=== PATIENT | male | born 1980 | race Hispanic/Latino ===

== ENCOUNTER 2025-05-30 11:13 | Emergency (ER) | payer BC ==
[~2025-05-30] VITALS: Ht 175.3 cm; Wt 93.0 kg
--- NOTE | 2025-05-30 11:21 | ERN ---
ED Note History of Present Illness Stated Complaint: STUNG BY STING RAY TO RLE Chief Complaint: Lower Extremity Pain/Injury Time Seen by MD: 11:16 Dictation: PATIENT IS A 44-YEAR-OLD MALE COMING IN FROM [place] WHERE HE WAS FISHING IN THE WATER AND WAS STUNG BY A STINGRAY TO THE RIGHT LATERAL CALF. ENTRANCE WOUND IS TO THE SUPERIOR RIGHT LATERAL CALF AREA. LAST TETANUS SHOT IS UNKNOWN NO HISTORY OF DIABETES. PATIENT IS CONCERNED ABOUT RETAINED FOREIGN BODY. Allergies: Coded Allergies: No Known Allergies (Unverified Allergy, Unknown, 05/30/25) Past Medical History Past Medical History: No Pertinent History Surgical History: None RN Note Reviewed/Agreed w/PFSH: Yes Review of System Dictation CONSTITUTIONAL: NEGATIVE EXCEPT FOR HPI HEAD/FACE: NEGATIVE EXCEPT FOR HPI EENT: NEGATIVE EXCEPT FOR HPI RESPIRATORY: NEGATIVE EXCEPT FOR HPI GASTROINTESTINAL/ABDOMINAL: NEGATIVE EXCEPT FOR HPI GENITOURINARY: NEGATIVE EXCEPT FOR HPI MUSCULOSKELETAL: NEGATIVE EXCEPT FOR HPI INTEGUMENTARY: NEGATIVE EXCEPT FOR HPI STINGRAY PUNCTURE TO RIGHT LATERAL CALF NEUROLOGICAL/PSYCH: NEGATIVE EXCEPT FOR HPI HEMATOLOGIC/LYMPHATIC: NEGATIVE EXCEPT FOR HPI ALL SYSTEMS NEGATIVE, EXCEPT NOTED ABOVE. 13 POINT REVIEW OF SYSTEMS ASSESSED AND ALL NEGATIVE EXCEPT FOR ABOVE. Initial Vital Sign VS Vital Signs Date Time Temp Pulse Resp B/P (MAP) Pulse Ox O2 Delivery O2 Flow Rate FiO2 05/30/25 11:15 97.7 79 20 129/89 99 0 05/30/25 11:29 Room Air* 21 Physical Exam Dictation VITAL SIGNS REVIEWED GENERAL APPEARANCE: ALERT, ORIENTED X 3, MILD ACUTE DISTRESS, WELL DEVELOPED, NOURISHED. HEAD AND FACE: NON-TRAUMATIC. EYES: PERRL, PINK CONJUNCTIVAS, EYELID NO TRAUMA, ANTERIOR CHAMBER WITH ARCUS SENILIS. EARS: PINNAS INTACT AND NO SIGNS OF TRAUMA OR ERYTHEMA EAR CANALS CLEAR AND NO DISCHARGE TM NO ERYTHEMA NOSE: NO DISCHARGE, NO BLEEDING. OROPHARYNX: MOUTH NORMAL, TONGUE PINK, PHARYNX CLEAR,NO ERYTHEMA, TONSILS NO EXUDATES, NO ABSCESSES NOTED, MUCOUS MEMBRANE MOIST NECK: SUPPLE, NON-TENDER, NO THYROMEGALY, NO MASSES, NO JVD, NO BRUITS BREAST:DEFERRED CHEST:NO TENDERNESS, NO CREPITUS, NO PARADOXICAL MOVEMENT, NO RETRACTIONS LUNGS:CLEAR, WELL-VENTILATED, SYMMETRIC, NO RALES, NO WHEEZING, NO RHONCHI, NO STRIDOR, GOOD BREATH SOUNDS BILATERALLY HEART: REGULAR RATE, REGULAR RHYTHM, NO MURMUR, NO GALLOPS VASCULAR: NO PERIPHERAL EDEMA, ABDOMEN: SOFT, POSITIVE BOWEL SOUNDS, NONDISTENDED, NO GUARDING, NONTENDER, NO REBOUND, NO MASSES NO HEPATOMEGALY, NO SPLENOMEGALY, NO BURRIS'S SIGN, NO HERNIAS. RECTAL: DEFERRED GENITAL: DEFERRED NEUROLOGICAL: NORMAL SPEECH, MOTOR FUNCTION INTACT, SENSORY FUNCTION INTACT MUSCULOSKELETAL: NECK NONTENDER, FULL RANGE OF MOTION, BACK NONTENDER, FULL RANGE OF MOTION, EXTREMITIES: NONTENDER, FULL RANGE OF MOTION SKIN: COLOR PINK, DRY, PUNCTURE WOUND TO RIGHT SUPERIOR LATERAL CALF AREA. DISTAL NEUROVASCULAR CMS INTACT LYMPHATIC: DEFERRED Results (Laboratory/Radiology) Laboratory/Radiology 1255/RIGHT TIB FIB DEMONSTRATES NO RADIOPAQUE FOREIGN BODY NOTED. Labs Reviewed?: Yes ED Course ED Course Orders Procedure Category Date Status Time Tibia/Fibula 2vws Rt RAD 05/30/25 Taken 11:19 Neomy PHA 05/30/25 Complete Sulf/Bacitra/Polymyxin 11:30 Ibuprofen 800 Mg Tab PHA 05/30/25 Complete (Motrin) 11:30 Clindamycin 150mg Cap PHA 05/30/25 Complete (Cleocin 150mg Cap 11:30 Current Medications Medications (Trade) Dose Ordered Sig/Wendy Route PRN Reason Start Time Stop Time Status Last Admin Dose Admin Clindamycin HCl (Cleocin 150mg Cap) 600 mg ONCE ONCE PO 05/30/25 11:30 05/30/25 11:31 DC 05/30/25 11:35 Ibuprofen (moTRIN) 800 mg ONCE ONCE PO 05/30/25 11:30 05/30/25 11:31 DC 05/30/25 11:35 Neomycin/ Polymyxin/ Bacitracin (Triple Antibiotic Ointment) 1 appl ONCE ONCE TP 05/30/25 11:30 05/30/25 11:31 DC 05/30/25 11:35 Vital Signs Date Time Temp Pulse Resp B/P (MAP) Pulse Ox O2 Delivery O2 Flow Rate FiO2 05/30/25 11:29 98.1 78 16 126/85 98 Room Air* 0 21 05/30/25 11:15 97.7 79 20 129/89 99 0 1255/PATIENT AWARE THAT HIS X-RAYS NEGATIVE FOR RADIOPAQUE FOREIGN BODY. HE CLINDAMYCIN WAS INITIATED WITH PAIN MANAGEMENT. PATIENT TOLD TO KEEP IT CLEAN AND DRY NO WAITING IN THE OCEAN HOT TUBS OR SWIMMING SEE HIS PRIMARY CARE DOCTOR ON SUNDAY WITHOUT FAIL FOR MANAGEMENT Medical Decision Making MDM MEDICAL DISCHARGE MAKING BASED ON UPDATING TETANUS SHOT AN X-RAY TO RULE OUT RETAINED JUAN MIGUEL FROM STINGRAY TO RIGHT LOWER EXTREMITY. NO FOREIGN BODY NOTED CLINDAMYCIN INITIATED WOUND CARE INSTRUCTIONS GIVEN DX & DISP Disposition: Discharge Departure Impression: Primary Impression: Puncture wound of right lower extremity Additional Impression: Poisoning by stingray Condition: Stable Scripts Ibuprofen (Ibuprofen 800 mg Tab) 800 Mg Tab 800 MG PO Q8H PRN for fever or pain, #30 TAB 0 Refills Prov: DEACON CA NP 05/30/25 Clindamycin HCl (Clindamycin HCl) 300 Mg Capsule 1 CAP PO QID for 10 Days, #40 CAP 0 Refills Prov: DEACON CA NP 05/30/25 Additional Instructions: FOLLOW-UP WITH PRIMARY CARE PROVIDER IN 1 TO 2 DAYS. TAKE MEDICATIONS DIRECTED HERE IN THE EMERGENCY ROOM. OKAY TO CONTINUE HOME MEDICATIONS UNLESS OTHERWISE DISCUSSED DURING YOUR VISIT IN THE EMERGENCY ROOM TODAY. RETURN TO YOUR NEAREST EMERGENCY ROOM IF SYMPTOMS WORSEN OR IF THERE IS NO IMPROVEMENT. CALL 911 IF YOU NEED IMMEDIATE ASSISTANCE. TAKE TYLENOL OR MOTRIN [id number] NEEDED AND IF NO CONTRAINDICATIONS ARE PRESENT. INCREASE ORAL HYDRATION. A WOUND CULTURE OR URINE CULTURE WAS ORDERED HERE IN THE EMERGENCY ROOM DEPARTMENT PLEASE FOLLOW-UP WITH PRIMARY CARE PROVIDER AND ADVISE THEM TO GET REPEAT PORTS FROM OUR FACILITY. IF YOU HAD ANY JUS WRAP/SPLINTS THAT WERE APPLIED HERE, PLEASE DO NOT REMOVE THEM UNTIL YOU SEE YOUR PRIMARY CARE OR SPECIALTY. KEEP PUNCTURE WOUNDS TO RIGHT LOWER EXTREMITY CLEAN AND DRY. NO SWIMMING IN POOL, NO OCEAN WAITING, NO HOT TUBS UNTIL CLEARED BY YOUR DOCTOR NEXT WEEK. TAKE ANTIBIOTICS DIRECTED UNTIL GONE. APPLY TRIPLE ANTIBIOTIC OINTMENT/[id number] 3 TIMES A DAY FOR FIVE DAYS WITH BAND-AID TO PUNCTURE WOUNDS. Referrals: SELF,REFERRAL (PCP) Time of Disposition: 12:56 I have reviewed the case, and I agree with, Diagnosis and Plan DEACON CA NP May 30, 2025 11:21
--- NOTE | 2025-05-30 11:26 | NUR ---
vis acuity 20/30 right 20/50 left Addendum: 05/30/25 at 1127 by [email or web address] disreguard visual acuity wrong pt
[2025-05-30] MEDS: NEOMY SULF/BACITRA/POLYMYXIN B 1 EACH PACKET TP ONE (11:35)
[2025-05-30] MEDS: CLINDAMYCIN 150 MG CAP PO ONE (11:35)
[2025-05-30] MEDS ORDERED: CLIN-141 PO (12:57)
[2025-05-30] MEDS ORDERED: IBUP-2077 PO (12:57)
[2025-05-30 13:03] VITALS: BP 124/80; PULSE 74; RESP 16; TEMP 98.1; O2SAT 98
--- NOTE | 2025-05-30 13:05 | NUR ---
dc pend med order for pain mgmt
[2025-05-30] MEDS: HYDROcodone/APAP 5/325 1 TAB TABLET PO ONE (13:13)
--- NOTE | 2025-05-30 13:55 | HMCIMG ---
EXAM: CR right Tibia and fibula, 2 View. CLINICAL HISTORY: STINGRAY STING TO LATERAL RIGHT CALF. RULE OUT FOREIGN BODY COMPARISON: None provided. FINDINGS: BONES: No acute fracture or aggressive appearing osseous lesion. JOINTS: No dislocation. The joint spaces are normal. SOFT TISSUES: The soft tissues are unremarkable. No radiodense foreign body. IMPRESSION: No acute osseous abnormality. /Cameron
== END 2025-05-30 13:19 | disposition home or self-care (01) ==
LOC: EDH 11:13
DX: S81.831A Puncture wound without foreign body, right lower leg, initial encounter (principal); W56.81XA Bitten by other nonvenomous marine animals, initial encounter; Y93.89 Activity, other specified; Y92.89 Other specified places as the place of occurrence of the external cause; Y99.8 Other external cause status
CPT/HCPCS: 73590; 99283